=== PATIENT | male | born 1980 | race Caucasian/White ===

== ENCOUNTER 2023-09-18 02:11 | Emergency (ER) | payer BC ==
[~2023-09-18] VITALS: Ht 175.3 cm; Wt 77.6 kg
[2023-09-18 02:20] VITALS: O2SAT 98
[2023-09-18 03:20] LABS: HEMATOCRIT. 46.3 % (42.0-52.0); MEAN CORPUSCULAR HEMOGLOBIN 30.4 pg (28.0-32.0); MEAN CORPUSCULAR HGB CONC 34.6 g/dL (31.0-37.0); MEAN CORPUSCULAR VOLUME 87.8 fL (80.0-94.0); MEAN PLATELET VOLUME 7.8 fl (7.4-10.4); PLATELET 205 x1000/uL (130-400); RED BLOOD CELL COUNT 5.28 mill/uL (4.7-6.1); RED CELL DISTRIBUTION WIDTH 12.5 % (11.6-14.6)
[2023-09-18 03:22] LABS: DIFFERENTIAL COMMENT 1
[2023-09-18] MEDS: MAGNESIUM/ALUMINUM HYDROXIDE/SIMETHICONE 30ML UDC PO ONE (03:23)
[2023-09-18 03:24] LABS: CHLORIDE 102 mEq/L (98-107); POTASSIUM 3.7 mEq/L (3.5-5.1); SODIUM 134 mEq/L (136-145)
[2023-09-18] MEDS: SODIUM CHLORIDE 0.9% 1,000 ML IV ONE (03:24)
[2023-09-18 03:25] LABS: CALCIUM 9.9 mg/dL (8.7-10.4); CARBON DIOXIDE 26 mEq/L (21-32)
[2023-09-18 03:30] LABS: CREATININE 1.2 mg/dL (0.6-1.3); GLUCOSE 114 mg/dL (70-105); UREA NITROGEN BLOOD 16 mg/dL (9-23)
[2023-09-18 03:32] LABS: ALANINE AMINOTRANSFERASE 47 IU/L (10-49); ALBUMIN 4.7 g/dL (3.2-4.8); ASPARTATE AMINOTRANSFERASE 29 IU/L (<34); BILIRUBIN DIRECT 0.4 mg/dL (<=3.0); BILIRUBIN TOTAL 1.3 mg/dL (0.1-1.0); PROTEIN TOTAL 7.4 g/dL (6.0-8.3)
[2023-09-18] MEDS: PANTOPRAZOLE SODIUM 40 MG/VIAL IV ONE (03:38)
[2023-09-18] MEDS: ACETAMINOPHEN 1000MG/100ML 100 ML IV ONE (03:38)
[2023-09-18 03:52] LABS: TROPONIN I HIGH SENSITIVITY < 4 ng/L (3.0-53)
[2023-09-18] MEDS ORDERED: NAPR275T96 MT (04:33)
[2023-09-18] MEDS ORDERED: MAG355OR21 MT (04:33)
[2023-09-18] MEDS ORDERED: ONDA4TAB50 MT (04:33)
[2023-09-18 05:09] VITALS: BP 121/79; PULSE 75; RESP 20; TEMP 99.8
[2023-09-18 05:29] LABS: PLATELET ESTIMATE NORMAL
== END 2023-09-18 05:12 | disposition home or self-care (01) ==
LOC: ER 02:11
DX: A08.4 Viral intestinal infection, unspecified (principal); I10 Essential (primary) hypertension
CPT/HCPCS: 99285; 96374; 71045; 96375; 80076; 80048; 83690; 85025; 84484; 36415; 93005; C9113; J0131